=== PATIENT | male | born 1995 | race Caucasian/White ===

== ENCOUNTER 2017-11-04 12:30 | Emergency (ER) | payer BC ==
[~2017-11-04] VITALS: Ht 188 cm; Wt 95.3 kg
[2017-11-04] MEDS ORDERED: NKM (12:46)
[2017-11-04 12:50] VITALS: BP 147/86
--- NOTE | 2017-11-04 13:11 | Emergency Room Report ---
History of Present Illness General Chief Complaint: Diarrhea Source: Patient Present Illness HPI 22-year-old male patient presents the ER complaining of diarrhea since this morning. Patient reports diarrhea that has since become bloody, states that only blood is coming out now, reports straining. Patient denies history of hemorrhoids or other GI problems. Patient also complaining of intermittent nausea, states that he made himself throw up. Patient reports that symptoms began this morning, denies eating food prior, reports last meal yesterday. denies history of hemorrhoids. Denies contacts or similar symptoms. Denies recent travel outside the [place]. Denies fever. Denies pain with urination or hematuria. Complains of suprapubic abdominal pain. Denies chest pain, shortness of breath. Denies new foods in diet. Denies working with kids. Reports no pain with bowel movements. Denies recent abx use. Allergies: Coded Allergies: No Known Allergies (Unverified , 11/04/17) Patient History Past Medical History: see triage record Reviewed Nursing Documentation: PMH: Agreed; PSxH: Agreed Nursing Documentation-PMH Past Medical History: No Stated History Review of Systems All Other Systems: negative except mentioned in HPI Physical Exam Vital Signs Date Time Temp Pulse Resp B/P (MAP) Pulse Ox O2 Delivery O2 Flow Rate FiO2 11/04/17 12:39 97.7 64 18 147/86 96 Room Air 97.7 Sp02 EP Interpretation: reviewed, normal General Appearance: well appearing, no apparent distress, alert, GCS 15, non- toxic Head: normocephalic, atraumatic Eyes: bilateral eye normal inspection, bilateral eye PERRL Neck: full range of motion Respiratory: lungs clear, normal breath sounds, no rhonchi, no respiratory distress, no accessory muscle use, no wheezing, speaking full sentences Cardiovascular #1: regular rate, rhythm, no edema Gastrointestinal: normal bowel sounds, non tender, soft, no mass, non-distended , no guarding, no rebound, other - negative Rovsing, negative Jaramillo, negative heel tap Rectal: normal rectal tone, heme negative stool, other Genitourinary: no CVA tenderness Musculoskeletal: back normal, digits/nails normal, gait/station normal, normal range of motion, non-tender Neurologic: alert, oriented x3, responsive, motor strength/tone normal, sensory intact Psychiatric: mood/affect normal Skin: no rash Medical Decision Making PA Attestation Dr. Main is my supervising Physician whom patient management has been discussed with. Diagnostic Impression: Primary Impression: Diarrhea ER Course Pt. presents to the ED c/o diarrhea. Ddx considered but are not limited to viral syndrome, gastritis, enteritis, hemorrhoids, dysentery, bacterial infection. Vital signs: are WNL, pt. is afebrile at discharge. Ordered basic labs, stool O&P, culture, fluids, Zofran and GI cocktail. ED COURSE: PE: patient complaining of suprapubic tenderness, no suprapubic TTP, negative Rovsing, negative Jaramillo, bowel sounds, negative heel tap negative obturator. Do not believe patient requires imaging at this time. No signs of dehydration, moist mucus membranes, patient is alert and oriented. CBC shows elevated WBC to 12.4 with left shift, will discharge home with abx to cover for possible bacterial infection. CMP no elevation in LFTs UA unremarkable FOBT negative, no black stool, no hemorrhoids, no anal fissure. Patient reports feeling better following administration of medication. patient reports he is hungry. Patient instructed on BRAT diet. ER precautions given. Consult with Dr. Main, agrees with treatment and plan. Patient able to tolerate PO fluids prior to discharge. DISCHARGE: Rx provided for Cipro 500mg, BID x3 days. Rx provided for Zofran, #5 for nausea symptoms. Patient instructed on BRAT diet. Patient instructed to remain hydrated, drink plenty of fluids. Patient questions asked and answered. Patient states understanding and agreement to treatment plan. At this time pt. is stable for d/c to home. Patient resting comfortably, in no acute distress, nontoxic appearing. Patient is resting comfortably, laughing, in no acute distress, nontoxic appearing. Will provide printed patient care instructions, and any necessary prescriptions. Care plan and follow up instructions have been discussed with the patient prior to discharge. Patient instructed to followup with PCP in 3-5 days. Patient reports understanding and agreement to treatment plan. Patient questions asked and answered. ER precautions given; patient instructed to return to ER for new or worsening of symptoms including but not limited to fever, intractable vomiting, severe abdominal pain. - Please note that this Emergency Department Report was dictated using [employer] farm helper technology software, occasionally this can lead to erroneous entry secondary to interpretation by the dictation equipment. Labs Test 11/04/17 12:50 11/04/17 13:19 11/04/17 13:28 Urine Color Yellow Urine Appearance Slightly cloudy Urine pH 6.5 (4.5-8.0) Urine Specific [place] 1.015 (1.005-1.035) Urine Protein Negative (NEGATIVE) Urine Glucose (UA) Negative (NEGATIVE) Urine Ketones Negative (NEGATIVE) Urine Occult Blood 1+ (NEGATIVE) Urine Nitrite Negative (NEGATIVE) Urine Bilirubin Negative (NEGATIVE) Urine Urobilinogen Normal MG/DL (0.0-1.0) Urine Leukocyte Esterase Negative (NEGATIVE) Urine RBC 2-4 /HPF (0 - 0) Urine WBC 2-4 /HPF (0 - 0) Urine Squamous Epithelial Cells Few /LPF (NONE/OCC) Urine Bacteria Few /HPF (NONE) Urine Mucus Few /LPF (NONE/OCC) Stool Occult Blood Positive (NEGATIVE) White Blood Count 12.4 K/UL (4.8-10.8) Red Blood Count 5.04 M/UL (4.70-6.10) Hemoglobin 15.0 G/DL (14.2-18.0) Hematocrit 43.0 % (42.0-52.0) Mean Corpuscular Volume 85 FL (80-99) Mean Corpuscular Hemoglobin 29.8 PG (27.0-31.0) Mean Corpuscular Hemoglobin Concent 34.9 G/DL (32.0-36.0) Red Cell Distribution Width 10.5 % (11.6-14.8) Platelet Count 291 K/UL (150-450) Mean Platelet Volume 7.5 FL (6.5-10.1) Neutrophils (%) (Auto) 84.1 % (45.0-75.0) Lymphocytes (%) (Auto) 8.1 % (20.0-45.0) Monocytes (%) (Auto) 6.9 % (1.0-10.0) Eosinophils (%) (Auto) 0.1 % (0.0-3.0) Basophils (%) (Auto) 0.9 % (0.0-2.0) Sodium Level 140 MMOL/L (136-145) Potassium Level 3.6 MMOL/L (3.5-5.1) Chloride Level 105 MMOL/L (98-107) Carbon Dioxide Level 25 MMOL/L (21-32) Anion Gap 10 mmol/L (5-15) Blood Urea Nitrogen 12 mg/dL (7-18) Creatinine 1.1 MG/DL (0.55-1.30) Estimat Glomerular Filtration Rate > 60 mL/min (>60) Glucose Level 116 MG/DL (74-106) Calcium Level 9.4 MG/DL (8.5-10.1) Total Bilirubin 0.5 MG/DL (0.2-1.0) Aspartate Amino Transf (AST/SGOT) 28 U/L (15-37) Alanine Aminotransferase (ALT/SGPT) 41 U/L (12-78) Alkaline Phosphatase 62 U/L (46-116) Total Protein 8.0 G/DL (6.4-8.2) Albumin 4.5 G/DL (3.4-5.0) Globulin 3.5 g/dL Albumin/Globulin Ratio 1.3 (1.0-2.7) Lipase 75 U/L (73-393) Last Vital Signs Date Time Temp Pulse Resp B/P (MAP) Pulse Ox O2 Delivery O2 Flow Rate FiO2 11/04/17 12:39 97.7 64 18 147/86 96 Room Air 97.7 Disposition: HOME, SELF-CARE Condition: Stable Scripts Ondansetron* (ZOFRAN*) 4 Mg Tablet 4 MG ORAL Q6H PRN for Nausea & Vomiting, #5 TAB Prov: Hussein Hernandez 11/04/17 Ciprofloxacin Hcl* (CIPROFLOXACIN HCL*) 500 Mg Tablet 500 MG ORAL EVERY 12 HOURS for 3 Days, #6 TAB 0 Refills Prov: Hussein Hernandez 11/04/17 Patient Instructions: Diarrhea, Adult Additional Instructions: Followup with primary care provider in 3 -5 days. Avoid spicy foods, avoid dairy foods. Drink plenty of fluids, avoid dehydration. BRAT diet: bananas, rice, apple sauce, toast. Take medications as directed. Patient questions asked and answered. ER precautions given, patient instructed to return to ER immediately for any new or worsening of symptoms. Hussein Hernandez November 04, 2017 13:11
[2017-11-04] MEDS ORDERED: Lidocaine 2% Visc 15ml soln ORAL ONE (13:15)
[2017-11-04] MEDS ORDERED: Mylanta II UD 30ml ORAL ONE (13:15)
[2017-11-04] MEDS ORDERED: Dicyclomine HCl 10mg/5ml oral soln ORAL ONE (13:15)
[2017-11-04 13:22] LABS: BILIRUBIN, URINE NEGATIVE (NEGATIVE); GLUCOSE, URINE (UA) NEGATIVE (NEGATIVE); KETONES,URINE NEGATIVE (NEGATIVE); LEUKOCYTE ESTERASE ,URINE NEGATIVE (NEGATIVE); NITRITE,URINE NEGATIVE (NEGATIVE); PH,URINE 6.5 (4.5-8.0); PROTEIN,URINE NEGATIVE (NEGATIVE); UROBILINOGEN,URINE NORMAL MG/DL (0.0-1.0)
[2017-11-04 13:39] LABS: APPEARANCE,URINE SLIGHTLY CLOUDY; COLOR,URINE YELLOW
[2017-11-04 13:45] LABS: BASOPHILS % (AUTO) 0.9 % (0.0-2.0); EOSINOPHILS % (AUTO) 0.1 % (0.0-3.0); LYMPHOCYTES % (AUTO) 8.1 % (20.0-45.0); MEAN CORPUSCULAR VOLUME 85 FL (80-99); MONOCYTES % (AUTO) 6.9 % (1.0-10.0); NEUTROPHILS % (AUTO) 84.1 % (45.0-75.0); PLATELET COUNT 291 K/UL (150-450); RED BLOOD COUNT 5.04 M/UL (4.70-6.10); RED CELL DISTRIBUTION WIDTH 10.5 % (11.6-14.8); WHITE BLOOD COUNT 12.4 K/UL (4.8-10.8)
[2017-11-04 13:59] LABS: ANION GAP 10 mmol/L (5-15); BLOOD UREA NITROGEN 12 mg/dL (7-18); CALCIUM 9.4 MG/DL (8.5-10.1); CARBON DIOXIDE 25 MMOL/L (21-32); CHLORIDE 105 MMOL/L (98-107); CREATININE 1.1 MG/DL (0.55-1.30); POTASSIUM 3.6 MMOL/L (3.5-5.1); SODIUM 140 MMOL/L (136-145)
[2017-11-04 14:04] LABS: ALANINE AMINOTRANSFERASE 41 U/L (12-78); ALBUMIN 4.5 G/DL (3.4-5.0); ALBUMIN/GLOBULIN RATIO 1.3 (1.0-2.7); ALKALINE PHOSPHATASE 62 U/L (46-116); ASPARTATE AMINO TRANSFERASE 28 U/L (15-37); BILIRUBIN,TOTAL 0.5 MG/DL (0.2-1.0)
[2017-11-04] MEDS ORDERED: CIPROFLOXACIN500 M2 ORAL (14:16)
[2017-11-04] MEDS ORDERED: ZOFRAN4 M3 ORAL (15:55)
[2017-11-04 16:55] VITALS: BP 124/76
== END 2017-11-04 16:59 | disposition home or self-care (01) ==
LOC: EMR 13:20
DX: R19.7 Diarrhea, unspecified (principal); K92.1 Melena
CPT/HCPCS: 36415; 80053; 81003; 82270; 83690; 85025; 87045; 96374; 96375; 99284; J2405